=== PATIENT | male | born 1950 | race African-American/Black ===

== ENCOUNTER 2023-04-03 09:24 | Emergency (ER) | payer OTHER ==
--- OUTSIDE RECORDS SUMMARY | 2023-04-03 09:29 | XMS REPORT | Continuity of Care Document ---
:1950 Author Organization [facility] t Address [address] [place] [address] [place] [id number] Care Team Providers Name Role Phone YFN UMANA Primary Care Physician Unavailable Yfn Umana Attending Clinician Unavailable PRISCILA SNYDER Attending Clinician Unavailable JAYLEEN ROCA Attending Clinician Unavailable DR ASMITA CA Attending Clinician Unavailable PRISCILA SNYDER Admitting Clinician Unavailable DR ASMITA CA Admitting Clinician Unavailable Payers Payer Name Policy Type Policy Number Effective Date Expiration Date S wilian [employer] MEDICARE 53 [id number] 2022 Common S pirit PPO 00:00:00 - [facility] MEDICARE A B [id number] 2016 00:00:00 [employer] INDEMNITY [id number] 2021 NON CONTR 00:00:00 Problems Condition Condition Condition Status Onset Resolution Last Treating Co mments Source Name Details Category Date Date Treatment Clinician Date 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) [place] [id number] Mixed Problem Common incontinen Spirit [facility] Urge Urge Problem Common incontinen incontinen Sp najma ce of [facility] urine [facility] [id number] OAB Problem Common (overactiv Spirit e bladder) - [facility] [id number] Detrusor Problem Comm on instabilit Spirit y [facility] [id number] S/P Problem Common prostatect [facility] ricardo [facility] 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 [facility] 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 [facility] Secondary 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 [facility] [id number] Ankle Problem Common arthritis [facility] Allergies, Adverse Reactions, Alerts Allergy Allergy Status Severity Reaction(s) Onset Inactive Treating Comm ents Source Name Type Date Date Clinician No Known DA Active [facility] NO KNOWN Allergy Active [facility] Social History Social Habit Start Date Stop Date Quantity Comments Source History of Tobacco Common Spirit - Use [facility] Sexual orientation [facility] Alcohol intake 2022-03-23 2022-03-23 Current [facility] es 00:00:00 00:00:00 non-drinker of Medical Ce nter alcohol (finding) Tobacco use and 2022-03-11 2022-03-11 Smokeless tobacco [facility] exposure 00:00:00 00:00:00 non-user Medical Center Sex Assigned At [birth year] NIKI Chana king 00:00:00 00:00:00 [facility] Smoking Status Start Date Stop Date Source Never smoked tobacco [facility] Medications Ordered Filled Start Stop Current Ordering Indication Dosage Frequency Signature Comments Components Source Medication Medication Date Date Medication? Clinician (SIG) Name Name Myrbetriq Myrbetriq 2022-0 No 1{table QD Myrbetriq 50 MG 50 MG 3-30 t} 50 MG 00:00: 00 Detrol LA 4 Detrol LA 4 2022-0 No 1{capsu QD Detrol LA MG MG 3-30 le} 4 MG 00:00: 00 Myrbetriq Myrbetriq 2022-0 No 1{table QD Myrbetriq 50 MG 50 MG 3-30 t} 50 MG 00:00: 00 Detrol LA 4 Detrol LA 4 2022-0 No 1{capsu QD Detrol LA MG MG 3-30 le} 4 MG 00:00: 00 Myrbetriq Myrbetriq 2022-0 No 1{table QD Myrbetriq 50 MG 50 MG 3-30 t} 50 MG 00:00: 00 Detrol LA 4 Detrol LA 4 2022-0 No 1{capsu QD Detrol LA MG MG 3-30 le} 4 MG 00:00: 00 Myrbetriq Myrbetriq 2022-0 No 1{table QD Myrbetriq 50 MG 50 MG 3-30 t} 50 MG 00:00: 00 Detrol LA 4 Detrol LA 4 2022-0 No 1{capsu QD Detrol LA MG MG 3-30 le} 4 MG 00:00: 00 Myrbetriq Myrbetriq 3-0 No 1{table QD Myrbetriq 50 MG 50 MG 3-30 t} 50 MG 00:00: 00 Detrol LA 4 Detrol LA 4 2022-0 No 1{capsu QD Detrol LA MG MG 3-30 le} 4 MG 00:00: 00 Myrbetriq Myrbetriq 2022-0 No 1{table QD Myrbetriq 50 MG 50 MG 3-30 t} 50 MG 00:00: 00 Detrol LA 4 Detrol LA 4 2023-0 No 1{capsu QD Detrol LA MG MG 3-30 le} 4 MG 00:00: 00 Myrbetriq Myrbetriq No 1{table QD Myrbetriq 50 MG 50 MG 3-30 t} 50 MG 00:00: 00 Detrol LA 4 Detrol LA 4 No 1{capsu QD Detrol LA MG MG 3-30 le} 4 MG 00:00: 00 Myrbetriq Myrbetriq No 1{table QD Myrbetriq 50 MG 50 MG 3-30 t} 50 MG 00:00: 00 Detrol LA 4 Detrol LA 4 No 1{capsu QD Detrol LA MG MG 3-30 le} 4 MG 00:00: 00 Myrbetriq Myrbetriq No 1{table QD Myrbetriq 50 MG 50 MG 3-30 t} 50 MG 00:00: 00 Detrol LA 4 Detrol LA 4 No 1{capsu QD Detrol LA MG MG 3-30 le} 4 MG 00:00: 00 Myrbetriq Myrbetriq No 1{table QD Myrbetriq 50 MG 50 MG 3-30 t} 50 MG 00:00: 00 Detrol LA 4 Detrol LA 4 No 1{capsu QD Detrol LA MG MG 3-30 le} 4 MG 00:00: 00 tamsulosin 2021-05 Yes .4mg QD Take 0.[address] [facility] (FLOMAX) 1-09 [facility] by [facility] 0.4 mg Cp24 11:20: mouth Medic al 24 hr 35 daily. [place] capsule glimepiride 2021-05 Yes 4mg Q.5D Take [address] (AMARYL) 4 1-09 by mouth 2 [facility] es MG tablet 11:20: (two) Medical 35 times Center daily . sitaGLIPtin 2021-05 Yes 100mg QD Take [address] (JANUVIA) 1-09 [facility] by [facility] 100 MG 11:20: mouth Medical tablet 35 daily. [place] losartan 2021-05 Yes 100mg QD Take [address] (COZAAR) 1-09 mg by [facility] 100 MG 11:20: mouth Medical tablet 35 daily. [place] metFORMIN 2021-05 Yes 1000mg Take 1,[address] [facility] [facility] (GLUCOPHAGE 1-09 mg by [facility] ) 1000 MG 11:20: mouth 2 Medic al tablet 35 (two) Center times daily with breakfast and dinner. metoprolol 2021-05 Yes 50mg QD Take [address] (TOPROL-XL) -09 by mouth Luke s 50 MG 24 hr 11:20: daily. Medi [facility] tablet 35 Center pantoprazol 2021-05 Yes 40mg QD Take [address] e 1-09 by mouth [facility] (PROTONIX) 11:20: daily. Medic al 40 MG 35 Center tablet acetaminoph 2021-05 Yes 500mg Take [address] en 1-09 mg by [facility] (TYLENOL) 11:20: mouth Medical 500 MG 35 every 6 Center tablet (six) hours as needed for Pain. solifenacin 2021-05 Yes 5mg QD Take [address] (VESICARE) - by mouth [facility] 10 MG 11:20: daily. Medical tablet 35 Center tolterodine 2021-05 Yes 4mg QD Take [address] (DETROL LA) -09 by mouth Luke s 4 MG 24 hr 11:20: daily. Medic al capsule 35 Center tadalafiL 2021-05 Yes 5mg QD Take [address] (CIALIS) 5 -09 by mouth [facility] MG tablet 11:20: daily. Medica l 35 [place] predniSONE 2021-05 Yes 5mg QD Take [address] (DELTASONE) -09 by mouth Luke s 5 MG tablet 11:20: daily. [facility] 35 Center cholecalcif 2021-05 Yes 1000U QD Take 1,[address] daisy, 1-09 Units by [facility] vitamin D3, 11:20: mouth Medic al (Vitamin 35 daily. [place] D3) 25 mcg (1,000 unit) capsule abiraterone 2021-05 Yes QD Take by [facility] 500 mg Tab 1-09 mouth [facility] 11:20: daily. Medical 35 Takes 2 Center tabs atorvastati 2021-05 Yes 20mg QD Take [address] n (LIPITOR) -09 by mouth Luke s 20 MG 11:20: daily. Medical tablet 35 Center meloxicam 2021-05 Yes 15mg QD Take [address] (MOBIC) 15 1-09 by mouth [facility] MG tablet 11:20: daily. Medica l 35 Center NIFEdipine 2021-05 Yes 30mg Q.5D Take [address] (PROCARDIA- 05-23 by mouth 2 Chana kes XL) 30 MG 11:20: (two) Medical (OSM) 24 hr 35 times Center tablet daily. dorzolamide 2021-05 Yes 1[drp] Q.5D Place [address] (TRUSOPT) 2 - drop into Daren es % 11:20: both eyes Medical ophthalmic 35 2 (two) Center solution times daily. brimonidine 2021-05 Yes 1[drp] Q.5D [address] [facility] -timoloL 09 (two) [facility] (Combigan) 11:20: times Medica l 0.2-0.5 % 35 daily. Center ophthalmic solution latanoprost 2021-05 Yes 1[drp] QD Place [address] (XALATAN) 05-23 drop into [facility] 0.005 % 11:20: both eyes Medic al ophthalmic 35 nightly. Cente r solution netarsudiL 2021-05 Yes 1[drp] QD Apply [address] (Rhopressa) 05-23 drop to [facility] 0.02 % Drop 11:20: eye(s) Medi [place] 35 nightly. Center Tadalafil 5 Tadalafil 5 No 1{table QD Tadalafil MG MG t_as_ne 5 MG eded} Myrbetriq Myrbetriq No 1{table QD Myrbetriq 50 MG 50 MG t} 50 MG Baby Baby No Baby Aspirin Aspirin Aspirin Glimepiride Glimepiride No 1{table QD Glimepirid 4 MG 4 MG t_with_ e [address]_or_t he_firs t_main_ meal_of _the_da y} Diflupredna Diflupredna No 1{drop_ BID Diflupredn te 0.05 % te 0.05 % into_af ate 0.05 % fected_ eye} Tolterodine Tolterodine No 1{table BID Tolterodin Tartrate 2 Tartrate 2 t} e Tartrate MG MG 2 MG hydrALAZINE hydrALAZINE No 1{table BID hydrALAZIN HCl 10 MG HCl 10 MG t_with_ E HCl 10 food} MG Losartan Losartan No 1{table QD Losartan Potassium Potassium t} Potassium 100 MG 100 MG 100 MG Carvedilol Carvedilol No 1{table BID Carvedilol 12.5 MG 12.5 MG t_with_ 12.5 MG food} metFORMIN metFORMIN No 1{table QD metFORMIN HCl 1000 MG HCl 1000 MG t_with_ HCl 1000 a_meal} MG NIFEdipine NIFEdipine No 1{table QD NIFEdipine ER 30 MG ER 30 MG t_on_an ER 30 MG _empty_ stomach } Atorvastati Atorvastati No 1{table QD Atorvastat n Calcium n Calcium t} in Calcium 20 MG 20 MG 20 MG Abiraterone Abiraterone No Abirateron Acetate Acetate e Acetate Farxiga 5 Farxiga 5 No 1{table QD Farxiga 5 MG MG t} MG Januvia 100 Januvia 100 No 1{table QD Januvia MG MG t} 100 MG Pantoprazol Pantoprazol No 1{table QD Pantoprazo e Sodium 40 e Sodium 40 t} le Sodium MG MG 40 MG Tadalafil 5 Tadalafil 5 No 1{table QD Tadalafil MG MG t_as_ne 5 MG eded} Myrbetriq Myrbetriq No 1{table QD Myrbetriq 50 MG 50 MG t} 50 MG Baby Baby No Baby Aspirin Aspirin Aspirin Glimepiride Glimepiride No 1{table QD Glimepirid 4 MG 4 MG t_with_ e [address]_or_t he_firs t_main_ meal_of _the_da y} Diflupredna Diflupredna No 1{drop_ BID Diflupredn te 0.05 % te 0.05 % into_af ate 0.05 % fected_ eye} Tolterodine Tolterodine No 1{table BID Tolterodin Tartrate 2 Tartrate 2 t} e Tartrate MG MG 2 MG hydrALAZINE hydrALAZINE No 1{table BID hydrALAZIN HCl 10 MG HCl 10 MG t_with_ E HCl 10 food} MG Losartan Losartan No 1{table QD Losartan Potassium Potassium t} Potassium 100 MG 100 MG 100 MG Carvedilol Carvedilol No 1{table BID Carvedilol 12.5 MG 12.5 MG t_with_ 12.5 MG food} metFORMIN metFORMIN No 1{table QD metFORMIN HCl 1000 MG HCl 1000 MG t_with_ HCl 1000 a_meal} MG NIFEdipine NIFEdipine No 1{table QD NIFEdipine ER 30 MG ER 30 MG t_on_an ER 30 MG _empty_ stomach } Tolterodine Tolterodine No Tolterodin Tartrate Tartrate e Tartrate Atorvastati Atorvastati No 1{table QD Atorvastat n Calcium n Calcium t} in Calcium 20 MG 20 MG 20 MG Abiraterone Abiraterone No Abirateron Acetate Acetate e Acetate Farxiga 5 Farxiga 5 No 1{table QD Farxiga 5 MG MG t} MG Januvia 100 Januvia 100 No 1{table QD Januvia MG MG t} 100 MG Pantoprazol Pantoprazol No 1{table QD Pantoprazo e Sodium 40 e Sodium 40 t} le Sodium MG MG 40 MG Baby Baby No Baby Aspirin Aspirin Aspirin Tadalafil 5 Tadalafil 5 No 1{table QD Tadalafil MG MG t_as_ne 5 MG eded} Myrbetriq Myrbetriq No 1{table QD Myrbetriq 50 MG 50 MG t} 50 MG Baby Baby No Baby Aspirin Aspirin Aspirin Glimepiride Glimepiride No 1{table QD Glimepirid 4 MG 4 MG t_with_ e [address]_or_t he_firs t_main_ meal_of _the_da y} Diflupredna Diflupredna No 1{drop_ BID Diflupredn te 0.05 % te 0.05 % into_af ate 0.05 % fected_ eye} Tolterodine Tolterodine No 1{table BID Tolterodin Tartrate 2 Tartrate 2 t} e Tartrate MG MG 2 MG hydrALAZINE hydrALAZINE No 1{table BID hydrALAZIN HCl 10 MG HCl 10 MG t_with_ E HCl 10 food} MG Losartan Losartan No 1{table QD Losartan Potassium Potassium t} Potassium 100 MG 100 MG 100 MG Carvedilol Carvedilol No 1{table BID Carvedilol 12.5 MG 12.5 MG t_with_ 12.5 MG food} metFORMIN metFORMIN No 1{table QD metFORMIN HCl 1000 MG HCl 1000 MG t_with_ HCl 1000 a_meal} MG Abiraterone Abiraterone No Abirateron Acetate Acetate e Acetate NIFEdipine NIFEdipine No 1{table QD NIFEdipine ER 30 MG ER 30 MG t_on_an ER 30 MG _empty_ stomach } Atorvastati Atorvastati No 1{table QD Atorvastat n Calcium n Calcium t} in Calcium 20 MG 20 MG 20 MG Abiraterone Abiraterone No Abirateron Acetate Acetate e Acetate Farxiga 5 Farxiga 5 No 1{table QD Farxiga 5 MG MG t} MG Januvia 100 Januvia 100 No 1{table QD Januvia MG MG t} 100 MG Pantoprazol Pantoprazol No 1{table QD Pantoprazo e Sodium 40 e Sodium 40 t} le Sodium MG MG 40 MG Atorvastati Atorvastati No Atorvastat n Calcium n Calcium in Calcium Tadalafil 5 Tadalafil 5 No 1{table QD Tadalafil MG MG t_as_ne 5 MG eded} Myrbetriq Myrbetriq No 1{table QD Myrbetriq 50 MG 50 MG t} 50 MG Baby Baby No Baby Aspirin Aspirin Aspirin Glimepiride Glimepiride No 1{table QD Glimepirid 4 MG 4 MG t_with_ e [address]_or_t he_firs t_main_ meal_of _the_da y} Diflupredna Diflupredna No 1{drop_ BID Diflupredn te 0.05 % te 0.05 % into_af ate 0.05 % fected_ eye} Tolterodine Tolterodine No 1{table BID Tolterodin Tartrate 2 Tartrate 2 t} e Tartrate MG MG 2 MG hydrALAZINE hydrALAZINE No 1{table BID hydrALAZIN HCl 10 MG HCl 10 MG t_with_ E HCl 10 food} MG Losartan Losartan No 1{table QD Losartan Potassium Potassium t} Potassium 100 MG 100 MG 100 MG Carvedilol Carvedilol No 1{table BID Carvedilol 12.5 MG 12.5 MG t_with_ 12.5 MG food} Carvedilol Carvedilol No Carvedilol metFORMIN metFORMIN No 1{table QD metFORMIN HCl 1000 MG HCl 1000 MG t_with_ HCl 1000 a_meal} MG NIFEdipine NIFEdipine No 1{table QD NIFEdipine ER 30 MG ER 30 MG t_on_an ER 30 MG _empty_ stomach } Atorvastati Atorvastati No 1{table QD Atorvastat n Calcium n Calcium t} in Calcium 20 MG 20 MG 20 MG Abiraterone Abiraterone No Abirateron Acetate Acetate e Acetate Farxiga 5 Farxiga 5 No 1{table QD Farxiga 5 MG MG t} MG Januvia 100 Januvia 100 No 1{table QD Januvia MG MG t} 100 MG Pantoprazol Pantoprazol No 1{table QD Pantoprazo e Sodium 40 e Sodium 40 t} le Sodium MG MG 40 MG Losartan Losartan No Losartan Potassium Potassium Potassium Tadalafil 5 Tadalafil 5 No 1{table QD Tadalafil MG MG t_as_ne 5 MG eded} Myrbetriq Myrbetriq No 1{table QD Myrbetriq 50 MG 50 MG t} 50 MG Baby Baby No Baby Aspirin Aspirin Aspirin Glimepiride Glimepiride No 1{table QD Glimepirid 4 MG 4 MG t_with_ e [address]_or_t he_firs t_main_ meal_of _the_da y} Diflupredna Diflupredna No 1{drop_ BID Diflupredn te 0.05 % te 0.05 % into_af ate 0.05 % fected_ eye} Tolterodine Tolterodine No 1{table BID Tolterodin Tartrate 2 Tartrate 2 t} e Tartrate MG MG 2 MG hydrALAZINE hydrALAZINE No 1{table BID hydrALAZIN HCl 10 MG HCl 10 MG t_with_ E HCl 10 food} MG Glimepiride Glimepiride No Glimepirid e Losartan Losartan No 1{table QD Losartan Potassium Potassium t} Potassium 100 MG 100 MG 100 MG Carvedilol Carvedilol No 1{table BID Carvedilol 12.5 MG 12.5 MG t_with_ 12.5 MG food} metFORMIN metFORMIN No 1{table QD metFORMIN HCl 1000 MG HCl 1000 MG t_with_ HCl 1000 a_meal} MG NIFEdipine NIFEdipine No 1{table QD NIFEdipine ER 30 MG ER 30 MG t_on_an ER 30 MG _empty_ stomach } Atorvastati Atorvastati No 1{table QD Atorvastat n Calcium n Calcium t} in Calcium 20 MG 20 MG 20 MG Abiraterone Abiraterone No Abirateron Acetate Acetate e Acetate Farxiga 5 Farxiga 5 No 1{table QD Farxiga 5 MG MG t} MG Januvia 100 Januvia 100 No 1{table QD Januvia MG MG t} 100 MG Pantoprazol Pantoprazol No Pantoprazo e Sodium e Sodium le Sodium Pantoprazol Pantoprazol No 1{table QD Pantoprazo e Sodium 40 e Sodium 40 t} le Sodium MG MG 40 MG Tadalafil 5 Tadalafil 5 No 1{table QD Tadalafil MG MG t_as_ne 5 MG eded} Myrbetriq Myrbetriq No 1{table QD Myrbetriq 50 MG 50 MG t} 50 MG Baby Baby No Baby Aspirin Aspirin Aspirin Glimepiride Glimepiride No 1{table QD Glimepirid 4 MG 4 MG t_with_ e [address]_or_t he_firs t_main_ meal_of _the_da y} predniSONE predniSONE No predniSONE Diflupredna Diflupredna No 1{drop_ BID Diflupredn te 0.05 % te 0.05 % into_af ate 0.05 % fected_ eye} Tolterodine Tolterodine No 1{table BID Tolterodin Tartrate 2 Tartrate 2 t} e Tartrate MG MG 2 MG hydrALAZINE hydrALAZINE No 1{table BID hydrALAZIN HCl 10 MG HCl 10 MG t_with_ E HCl 10 food} MG Losartan Losartan No 1{table QD Losartan Potassium Potassium t} Potassium 100 MG 100 MG 100 MG Carvedilol Carvedilol No 1{table BID Carvedilol 12.5 MG 12.5 MG t_with_ 12.5 MG food} metFORMIN metFORMIN No 1{table QD metFORMIN HCl 1000 MG HCl 1000 MG t_with_ HCl 1000 a_meal} MG NIFEdipine NIFEdipine No 1{table QD NIFEdipine ER 30 MG ER 30 MG t_on_an ER 30 MG _empty_ stomach } Atorvastati Atorvastati No 1{table QD Atorvastat n Calcium n Calcium t} in Calcium 20 MG 20 MG 20 MG Abiraterone Abiraterone No Abirateron Acetate Acetate e Acetate Tadalafil Tadalafil No Tadalafil Farxiga 5 Farxiga 5 No 1{table QD Farxiga 5 MG MG t} MG Januvia 100 Januvia 100 No 1{table QD Januvia MG MG t} 100 MG Pantoprazol Pantoprazol No 1{table QD Pantoprazo e Sodium 40 e Sodium 40 t} le Sodium MG MG 40 MG Tadalafil 5 Tadalafil 5 No 1{table QD Tadalafil MG MG t_as_ne 5 MG eded} NIFEdipine NIFEdipine No NIFEdipine ER ER ER Myrbetriq Myrbetriq No 1{table QD Myrbetriq 50 MG 50 MG t} 50 MG Baby Baby No Baby Aspirin Aspirin Aspirin Glimepiride Glimepiride No 1{table QD Glimepirid 4 MG 4 MG t_with_ e [address]_or_t he_firs t_main_ meal_of _the_da y} Diflupredna Diflupredna No 1{drop_ BID Diflupredn te 0.05 % te 0.05 % into_af ate 0.05 % fected_ eye} Tolterodine Tolterodine No 1{table BID Tolterodin Tartrate 2 Tartrate 2 t} e Tartrate MG MG 2 MG hydrALAZINE hydrALAZINE No 1{table BID hydrALAZIN HCl 10 MG HCl 10 MG t_with_ E HCl 10 food} MG Losartan Losartan No 1{table QD Losartan Potassium Potassium t} Potassium 100 MG 100 MG 100 MG Carvedilol Carvedilol No 1{table BID Carvedilol 12.5 MG 12.5 MG t_with_ 12.5 MG food} metFORMIN metFORMIN No 1{table QD metFORMIN HCl 1000 MG HCl 1000 MG t_with_ HCl 1000 a_meal} MG metFORMIN metFORMIN No metFORMIN HCl HCl HCl NIFEdipine NIFEdipine No 1{table QD NIFEdipine ER 30 MG ER 30 MG t_on_an ER 30 MG _empty_ stomach } Atorvastati Atorvastati No 1{table QD Atorvastat n Calcium n Calcium t} in Calcium 20 MG 20 MG 20 MG Abiraterone Abiraterone No Abirateron Acetate Acetate e Acetate Farxiga 5 Farxiga 5 No 1{table QD Farxiga 5 MG MG t} MG Januvia 100 Januvia 100 No 1{table QD Januvia MG MG t} 100 MG Pantoprazol Pantoprazol No 1{table QD Pantoprazo e Sodium 40 e Sodium 40 t} le Sodium MG MG 40 MG hydrALAZINE hydrALAZINE No hydrALAZIN HCl HCl E HCl Tadalafil 5 Tadalafil 5 No 1{table QD Tadalafil MG MG t_as_ne 5 MG eded} Myrbetriq Myrbetriq No 1{table QD Myrbetriq 50 MG 50 MG t} 50 MG Baby Baby No Baby Aspirin Aspirin Aspirin Glimepiride Glimepiride No 1{table QD Glimepirid 4 MG 4 MG t_with_ e [address]_or_t he_firs t_main_ meal_of _the_da y} Diflupredna Diflupredna No 1{drop_ BID Diflupredn te 0.05 % te 0.05 % into_af ate 0.05 % fected_ eye} Tolterodine Tolterodine No 1{table BID Tolterodin Tartrate 2 Tartrate 2 t} e Tartrate MG MG 2 MG hydrALAZINE hydrALAZINE No 1{table BID hydrALAZIN HCl 10 MG HCl 10 MG t_with_ E HCl 10 food} MG Losartan Losartan No 1{table QD Losartan Potassium Potassium t} Potassium 100 MG 100 MG 100 MG Carvedilol Carvedilol No 1{table BID Carvedilol 12.5 MG 12.5 MG t_with_ 12.5 MG food} Meloxicam Meloxicam No Meloxicam metFORMIN metFORMIN No 1{table QD metFORMIN HCl 1000 MG HCl 1000 MG t_with_ HCl 1000 a_meal} MG NIFEdipine NIFEdipine No 1{table QD NIFEdipine ER 30 MG ER 30 MG t_on_an ER 30 MG _empty_ stomach } Atorvastati Atorvastati No 1{table QD Atorvastat n Calcium n Calcium t} in Calcium 20 MG 20 MG 20 MG Abiraterone Abiraterone No Abirateron Acetate Acetate e Acetate Farxiga 5 Farxiga 5 No 1{table QD Farxiga 5 MG MG t} MG Januvia 100 Januvia 100 No 1{table QD Januvia MG MG t} 100 MG Pantoprazol Pantoprazol No 1{table QD Pantoprazo e Sodium 40 e Sodium 40 t} le Sodium MG MG 40 MG Januvia Januvia No Januvia Tadalafil 5 Tadalafil 5 No 1{table QD Tadalafil MG MG t_as_ne 5 MG eded} Myrbetriq Myrbetriq No 1{table QD Myrbetriq 50 MG 50 MG t} 50 MG Baby Baby No Baby Aspirin Aspirin Aspirin Glimepiride Glimepiride No 1{table QD Glimepirid 4 MG 4 MG t_with_ e [address]_or_t he_firs t_main_ meal_of _the_da y} Diflupredna Diflupredna No 1{drop_ BID Diflupredn te 0.05 % te 0.05 % into_af ate 0.05 % fected_ eye} Tolterodine Tolterodine No 1{table BID Tolterodin Tartrate 2 Tartrate 2 t} e Tartrate MG MG 2 MG hydrALAZINE hydrALAZINE No 1{table BID hydrALAZIN HCl 10 MG HCl 10 MG t_with_ E HCl 10 food} MG Losartan Losartan No 1{table QD Losartan Potassium Potassium t} Potassium 100 MG 100 MG 100 MG Carvedilol Carvedilol No 1{table BID Carvedilol 12.5 MG 12.5 MG t_with_ 12.5 MG food} metFORMIN metFORMIN No 1{table QD metFORMIN HCl 1000 MG HCl 1000 MG t_with_ HCl 1000 a_meal} MG NIFEdipine NIFEdipine No 1{table QD NIFEdipine ER 30 MG ER 30 MG t_on_an ER 30 MG _empty_ stomach } Atorvastati Atorvastati No 1{table QD Atorvastat n Calcium n Calcium t} in Calcium 20 MG 20 MG 20 MG Abiraterone Abiraterone No Abirateron Acetate Acetate e Acetate Farxiga 5 Farxiga 5 No 1{table QD Farxiga 5 MG MG t} MG Januvia 100 Januvia 100 No 1{table QD Januvia MG MG t} 100 MG Pantoprazol Pantoprazol No 1{table QD Pantoprazo e Sodium 40 e Sodium 40 t} le Sodium MG MG 40 MG Tadalafil 5 Tadalafil 5 No 1{table QD Tadalafil MG MG t_as_ne 5 MG eded} Myrbetriq Myrbetriq No 1{table QD Myrbetriq 50 MG 50 MG t} 50 MG Baby Baby No Baby Aspirin Aspirin Aspirin Glimepiride Glimepiride No 1{table QD Glimepirid 4 MG 4 MG t_with_ e [address]_or_t he_firs t_main_ meal_of _the_da y} Diflupredna Diflupredna No 1{drop_ BID Diflupredn te 0.05 % te 0.05 % into_af ate 0.05 % fected_ eye} Tolterodine Tolterodine No 1{table BID Tolterodin Tartrate 2 Tartrate 2 t} e Tartrate MG MG 2 MG hydrALAZINE hydrALAZINE No 1{table BID hydrALAZIN HCl 10 MG HCl 10 MG t_with_ E HCl 10 food} MG Losartan Losartan No 1{table QD Losartan Potassium Potassium t} Potassium 100 MG 100 MG 100 MG Carvedilol Carvedilol No 1{table BID Carvedilol 12.5 MG 12.5 MG t_with_ 12.5 MG food} metFORMIN metFORMIN No 1{table QD metFORMIN HCl 1000 MG HCl 1000 MG t_with_ HCl 1000 a_meal} MG NIFEdipine NIFEdipine No 1{table QD NIFEdipine ER 30 MG ER 30 MG t_on_an ER 30 MG _empty_ stomach } Atorvastati Atorvastati No 1{table QD Atorvastat n Calcium n Calcium t} in Calcium 20 MG 20 MG 20 MG Abiraterone Abiraterone No Abirateron Acetate Acetate e Acetate Farxiga 5 Farxiga 5 No 1{table QD Farxiga 5 MG MG t} MG Januvia 100 Januvia 100 No 1{table QD Januvia MG MG t} 100 MG Pantoprazol Pantoprazol No 1{table QD Pantoprazo e Sodium 40 e Sodium 40 t} le Sodium MG MG 40 MG Vital Signs Vital Name Observation Time Observation Value Comments Source height 2022-06-27 15:15:00 71 [in_i] [facility] weight 2022-06-27 15:15:00 212 [lb_av] [facility] temperature 2022-06-27 15:15:00 97.4 [degF] [facility] bmi 2022-06-27 15:15:00 29.56 kg/m2 [facility] respiratory rate 2022-06-27 15:15:00 18 /min [facility] blood pressure 2022-06-27 15:15:00 152 mm[Hg] [facility] blood pressure 2022-06-27 15:15:00 69 mm[Hg] [facility] diastolic [facility] HEIGHT 2022-03-11 12:00:00 180.3 cm WEIGHT 2022-03-11 12:00:00 92.987 kg HEIGHT 2022-03-11 12:00:00 180.3 cm WEIGHT 2022-03-11 12:00:00 92.987 kg height 2022-03-03 09:00:00 71 [in_i] [facility] weight 2022-03-03 09:00:00 216 [lb_av] [facility] temperature 2022-03-03 09:00:00 97.2 [degF] [facility] bmi 2022-03-03 09:00:00 30.12 kg/m2 [facility] blood pressure 2022-03-03 09:00:00 132 mm[Hg] [facility] blood pressure 2022-03-03 09:00:00 84 mm[Hg] [facility] - diastolic [facility] Procedures Procedure Date / Time Performed Performing Clinician Sourc e PVR 2022-06-27 00:00:00 [facility] Plan of Care Planned Activity Planned Date Details Comments Source Future Scheduled 2023-03-[address] [facility] 00:00:00 Counseling and Medical Cente r Screening (12+) [code = Tobacco Cessation Counseling and Screening (12+)] Future Scheduled 2023-01-13 Influenza Vaccine (#1) [facility] 00:00:00 [code = Influenza Medical Ce nter Vaccine (#1)] Future Scheduled 2022-05-[address] [facility] 00:00:00 (12+) [code = Medical Center DEPRESSION SCREENING (12+)] Future Scheduled 2022-05-15 FALLS RISK SCREENING [facility] 00:00:00 [code = FALLS RISK Medical C enter SCREENING] Future Scheduled 2020-10-04 COVID-19 VACCINE (3 - [facility] 00:[facility]00 Moderna series) [code = [facility] COVID-19 VACCINE (3 - Moderna series)] Future Scheduled 2017-01-[address] [facility] 00:00:00 WELLNESS (YEAR 2 or Medical Center FIRST YEAR if no IPPE) [code = MEDICARE ANNUAL WELLNESS (YEAR 2 or FIRST YEAR if no IPPE)] Future Scheduled 2016-01-26 PNEUMOCOCCAL 65+ YRS ([address] [facility] 00:00:00 - PCV) [code = Medical Cente r PNEUMOCOCCAL 65+ YRS (1 - PCV)] Future Scheduled 2001 SHINGLES VACCINES ([address] [facility] 00:00:00 2) [code = SHINGLES Medical Center VACCINES (1 of 2)] Future Scheduled 1970 DTAP/TDAP/TD VACCINES [facility] 00:00:00 (1 - Tdap) [code = Medical C enter DTAP/TDAP/TD VACCINES (1 - Tdap)] Future Scheduled 1969 HEPATITIS C SCREENING [facility] 00:00:00 [code = HEPATITIS C Medical Center SCREENING] Future Scheduled 1951 CT Colonography (combo) [facility] 00:00:00 [code = CT Colonography [facility] (combo)] Future Scheduled 1950 Screening for malignant [facility] Test 00:00:00 neoplasm of colon Medical Ce nter (procedure) [code = 562811151] Future Scheduled 1950 Screening for malignant [facility] Test 00:00:00 neoplasm of colon Medical Ce nter (procedure) [code = 574733401] Future Scheduled 1950 Screening for malignant [facility] Test 00:00:00 neoplasm of colon Medical Ce nter (procedure) [code = 646391853] Future Scheduled 1950 Screening for malignant [facility] Test 00:00:00 neoplasm of colon Medical Ce nter (procedure) [code = 788434428] Future Scheduled 1950 Sigmoidoscopy [code = [facility] 00:[facility]:00 Sigmoidoscopy] Medical Cente r Encounters Start End Encounter Admission Attending Care Care Encounter Source Date/Time Date/Time Type Type Clinicians Facility Department ID 2022-06-27 Outpatient Umana, STLMLC STLMLC [id number] Common 13:40:02 Yfn [id number] [facility] 2022-06-23 Outpatient Umana, STLMLC STLMLC [id number] Common 15:23:01 Yfn [id number] [facility] 2022-06-13 Outpatient Umana, STLMLC STLMLC [id number] Common 09:15:03 Yfn [id number] [facility] 2022-03-03 Outpatient Umana, STLMLC STLMLC [id number] Common 09:04:02 Yfn [id number] [facility] 2022-09-27 2022-09-27 ([place]) Nurse STLC STLC [id number] Common 00:00:00 00:00:00 Visit [facility] 2022-09-20 2022-09-20 ([place]) Nurse STLC STLC [id number] Common 00:00:00 00:00:00 Visit [facility] 2022-09-13 2022-09-13 ([place]) Nurse STLC STLC [id number] Common 00:00:00 00:00:00 Visit [facility] 2022-09-06 2022-09-06 ([place]) Nurse STLMLC STLMLC [id number] Common 00:00:00 00:00:00 Visit [facility] 2022-08-30 2022-08-30 OFFICE STLMLC STLC [id number] Co mmon 00:00:00 00:00:00 VISIT [facility] LEVEL 1 [facility] 2022-08-23 2022-08-23 ([place]) Nurse STLC STLC [id number] Common 00:00:00 00:00:00 Visit [facility] 2022-08-16 2022-08-16 ([place]) Nurse STLC STLC [id number] Common 00:00:00 00:00:00 Visit [facility] 2022-08-11 2022-08-11 OFFICE STLMLC STLMLC [id number] Co mmon 00:00:00 00:00:00 [facility]ISIT [facility] EST[facility] PT - [facility] LEVEL 4 [facility] 2022-07-28 2022-07-28 (PROC) STLMLC STLMLC [id number] Co mmon 00:00:00 00:00:00 Procedure Spir it - [facility] 2022-06-27 2022-06-27 OFFICE STLMLC STLMLC [id number] Co mmon 00:00:00 00:00:00 VISIT NEW Spir it PT LEVEL 3 - [facility] 2022-03-23 2022-03-23 Outpatient GEOFFREY SNYDER [facility] Surgery [id number] SLE 08:06:00 11:15:00 PRISCILA 2022-03-11 2022-03-11 Outpatient [facility] [id number] SLE 12:22:19 23:59:00 2022-03-03 2022-03-03 OFFICE STLMLC STLMLC [id number] Co mmon 00:00:00 00:00:00 VISIT NEW Spir it PT LEVEL 3 - [facility] 2019-07-16 2019-07-16 Outpatient [facility] [id number] 09:30:00 09:30:00 -[id number] [facility] 2016-10-14 2016-10-14 Outpatient Marcelo [facility] [id number] [address] 05:00:00 05:00:00 [facility] Results Test Description Test Time Test Comments Results Result Comments Source POCT-GLUCOSE METER 2022-03-23 09:09:52 Test Item Value Reference Range Interpretation Comme nts POC-GLUCOSE METER (BEAKER) 123 mg/dL 70-110 H : TESTED AT [address], (test code = 1538) [facility] [id number]: C[employer]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 No focal consolidation or pulmonary edema. PLEURA:No pleural effusion or pneumothorax. MEDIASTINUM:The cardiomediastinal silhouette appears normal in size and shape. BONES/SOFT TISSUES:No acute osseous injury. Partially visualized cervical spine fusion hardware. ABDOMEN:No free air under the diaphragm. IMPRESSION: No focal pneumonia or pulmonary edema. Signed by: Norma Martinez MD on 07/16/2019 9:04 AM Dictated By: NORMA MARTINEZ MD 3 Transcribed By: PETER on 07/16/19903 COPY TO: JAYLEEN ROCA MD
[2023-04-03] MEDS ORDERED: MORPHINE 4 MG/ML SYR ONE (10:06)
[2023-04-03] MEDS ORDERED: NA CHLORIDE 0.9% 1,000 ML ONE (10:06)
[2023-04-03] MEDS ORDERED: ONDANSETRON 4 MG/2 ML VIAL ONE (10:06)
[2023-04-03] MEDS ORDERED: KETOROLAC 30 MG/ML INJ ONE (10:06)
[2023-04-03] MEDS ORDERED: DIAZEPAM 5 MG TABLET ONE (10:06)
[2023-04-03] MEDS ORDERED: NA CHLORIDE 0.9% 500 ML ONE (10:07)
[2023-04-03 10:24] LABS: Absolute Lymphocytes (CBC) 0.8 K/uL (0.7-4.9); Hematocrit 33.6 % (39.6-49.0); Lymphocytes % 7.7 % (15.3-44.8); MCV 89.1 fL (80-100); Platelets 299 thou/uL (152-406); RBC Red Blood Cell Count 3.77 M/uL (4.33-5.43)
[2023-04-03 10:45] LABS: Albumin 3.9 g/dL (3.4-5.0); Bilirubin Total 0.4 mg/dL (0.2-1.0); Potassium 3.4 mEq/L (3.5-5.1); Protein, Total 8.1 g/dL (6.4-8.2); Uric Acid 2.9 mg/dL (3.5-7.2)
--- NOTE | 2023-04-03 10:50 | RAD REPORT ---
EXAM DESCRIPTION: USExtremity Venous Uni Ltd04/03/2023 10:33 am CLINICAL HISTORY: left leg swelling and pain COMPARISON: None FINDINGS: Left common femoral, superficial femoral, greater saphenous, popliteal and posterior tibi al veins are compressible and demonstrate augmentation. Doppler demonstrates good flow. Grayscale, color and spectral analysis performed on all vessels IMPRESSION: No evidence of deep venous thrombosis involving the left lower extremity.
--- NOTE | 2023-04-03 11:47 | RAD REPORT ---
EXAM DESCRIPTION: RAD - Ankle Left 3 View -04/03/2023 11:34 am CLINICAL HISTORY: Left ankle pain FINDINGS: No fracture or dislocation is seen. Mild to moderate osteoarthritis involves the ankle mainly consisting of joint space narrowing and ost eophytes
[2023-04-03] MEDS ORDERED: POTASSIUM 25 MEQ EFFERV TAB ONE (11:57)
--- NOTE | 2023-04-03 12:12 | EDPHYS ---
Physician Documentation [facility] Name: Tim Easton Age: 73 yrs Sex: Male : 1950 Arrival Date: 04/03/2023 Time: 09:24 Bed 13 Private MD: SHAMIR Physician Jamshid Bowen HPI: 04/03 10:24 This 73 yrs old Black Male presents to ER via Wheelchair with complaints of Feet elizabeth Swelling - left foot. 10:24 The patient presents with decreased range of motion, pain. elizabeth 10:25 The complaints affect the left ankle. Onset: The symptoms/episode began/occurred 3 elizabeth day(s) ago. Context: resulted from an unknown cause, The mechanism of injury is unknown. The patient can partially bear weight on the affected extremity. Associated signs and symptoms: The patient has no apparent associated signs or symptoms. The patient presents with decreased range of motion, a deformity, pain. The complaints affect the left foot, lateral side of left foot, left lateral malleolus, left medial malleolus, instep of left foot and arch of left foot. Historical: - Allergies: 09:46 No Known Allergies; iw - PMHx: 09:46 Diabetes mellitus; Hypertensive disorder; prostate cancer-bone cancer; iw - Immunization history:: Adult Immunizations up to date. - Family history:: not pertinent. - Social history:: Smoking status: Patient denies any tobacco usage or history of. ROS: 10:25 Constitutional: Negative for fever, chills, and weight loss, Eyes: Negative for injury, elizabeth pain, redness, and discharge, ENT: Negative for injury, pain, and discharge, Neck: Negative for injury, pain, and swelling, Cardiovascular: Negative for chest pain, palpitations, and edema, Respiratory: Negative for shortness of breath, cough, wheezing, and pleuritic chest pain, Abdomen/GI: Negative for abdominal pain, nausea, vomiting, diarrhea, and constipation, Back: Negative for injury and pain, : Negative for injury, bleeding, discharge, and swelling, Skin: Negative for injury, rash, and discoloration, Neuro: Negative for headache, weakness, numbness, tingling, and seizure, Psych: Negative for depression, anxiety, suicide ideation, homicidal ideation, and hallucinations, Allergy/Immunology: Negative for hives, rash, and allergies, Endocrine: Negative for neck swelling, polydipsia, polyuria, polyphagia, and marked weight changes, Hematologic/Lymphatic: Negative for swollen nodes, abnormal bleeding, and unusual bruising, 10:25 MS/extremity: Positive for decreased range of motion, pain, swelling, tenderness, of the arch of left foot and dorsum of left foot, Exam: 10:25 Constitutional: This is a well developed, well nourished patient who is awake, alert, elizabeth and in no acute distress. Head/Face: Normocephalic, atraumatic. Eyes: Pupils equal round and reactive to light, extra-ocular motions intact. Lids and lashes normal. Conjunctiva and sclera are non-icteric and not injected. Cornea within normal limits. Periorbital areas with no swelling, redness, or edema. ENT: Nares patent. No nasal discharge, no septal abnormalities noted. Tympanic membranes are normal and external auditory canals are clear. Oropharynx with no redness, swelling, or masses, exudates, or evidence of obstruction, uvula midline. Mucous membranes moist. Neck: Trachea midline, no thyromegaly or masses palpated, and no cervical lymphadenopathy. Supple, full range of motion without nuchal rigidity, or vertebral point tenderness. No Meningismus. Chest/axilla: Normal chest wall appearance and motion. Nontender with no deformity. No lesions are appreciated. Cardiovascular: Regular rate and rhythm with a normal S1 and S2. No gallops, murmurs, or rubs. Normal PMI, no JVD. No pulse deficits. Respiratory: Lungs have equal breath sounds bilaterally, clear to auscultation and percussion. No rales, rhonchi or wheezes noted. No increased work of breathing, no retractions or nasal flaring. Abdomen/GI: Soft, non-tender, with normal bowel sounds. No distension or tympany. No guarding or rebound. No evidence of tenderness throughout. Back: No spinal tenderness. No costovertebral tenderness. Full range of motion. Male : Normal genitalia with no discharge or lesions. Skin: Warm, dry with normal turgor. Normal color with no rashes, no lesions, and no evidence of cellulitis. Neuro: Awake and alert, GCS 15, oriented to person, place, time, and situation. Cranial nerves II-XII grossly intact. Motor strength 5/5 in all extremities. Sensory grossly intact. Cerebellar exam normal. Normal gait. Psych: Awake, alert, with orientation to person, place and time. Behavior, mood, and affect are within normal limits. 10:25 Musculoskeletal/extremity: ROM: full active range of motion, full passive range of motion, Circulation is intact in all extremities. Sensation intact. Compartment Syndrome exam of affected extremity: is normal. Weight bearing: is unable to bear weight, DVT Exam: negative Homans' sign noted on exam, no appreciated bluish discoloration, no erythema, no increased warmth, pain, swelling, tenderness, Vital Signs: 09:43 BP 160 / 82 LA Sitting (auto/reg); Pulse 66 MON; Resp 16 S; Temp 98.3; Pulse Ox 99% on ds4 R/A; 10:37 BP 154 / 83; Pulse 65; Resp 18; Pulse Ox 100% on R/A; db 11:00 BP 164 / 79; Pulse 65; Resp 18; Pulse Ox 100% on R/A; db 12:00 BP 158 / 78; Pulse 65; Resp 18; Pulse Ox 100% ; db MDM: 09:28 Patient medically screened. [facility] 10:27 Differential diagnosis: fracture, sprain, arthritis, gout, cellulitis. Data reviewed: [facility] vital signs, nurses notes, lab test result(s), radiologic studies, doppler, plain films. Consideration of Admission/Observation Escalation of care including admission/observation considered. I considered the following discharge prescriptions or medication management in the emergency department Medications were administered in the Emergency Department. See MAR. Independent interpretation of the following test(s) in the Emergency Department X-Ray: My interpretation is no gas, no fx. Test considered but Not performed: MRI: no mri foot. Historians other than the Patient: Family Member: , son. Care significantly affected by the following chronic conditions: Diabetes, Hypertension, Cancer. 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 04/03 09:48 Order name: CBC with Diff; Complete Time: 10:44 [facility] 04/03 09:48 Order name: Comprehensive Metabolic Panel; Complete Time: 11:27 [facility] 04/03 09:48 Order name: Uric Acid; Complete Time: 11:27 [facility] 04/03 09:48 Order name: Blood Culture Adult (2) [facility] 04/03 09:48 Order name: Lactate w/ 2H reflex if indic.; Complete Time: 10:44 [facility] 04/03 09:48 Order name: Foot Left 3 View XRAY; Complete Time: 12:20 [facility] 04/03 09:48 Order name: Ankle Left 3 View XRAY; Complete Time: 11:59 [facility] 04/03 09:50 Order name: US Extremity Venous Unilateral Ltd; Complete Time: 11:27 [facility] 04/03 10:43 Order name: Walking boot; Complete Time: 12:29 [facility] 04/03 12:43 Order name: Crutch Training; Complete Time: 13:02 [facility] Administered Medications: 10:08 Drug: NS 0.9% IV 500 ml IV at bolus once Route: IV; Rate: bolus; Site: right db antecubital; 12:45 Follow up: Response: No adverse reaction; IV Status: Completed infusion; IV Intake: db 500ml 10:08 Drug: Ketorolac IVP 15 mg IVP once Route: IVP; Site: right antecubital; db 11:49 Follow up: Response: No adverse reaction db 10:08 Drug: Ondansetron IVP 4 mg IVP once; over 2 minutes Route: IVP; Site: right antecubital;db 11:49 Follow up: Response: No adverse reaction db 10:08 Drug: Diazepam PO 5 mg PO once Route: PO; db 11:49 Follow up: Response: No adverse reaction db 10:44 Drug: morphine IVP or IV 4 mg IVP once over 4 mins Route: IVP; Infused Over: 4 mins; db Site: right antecubital; 11:49 Follow up: Response: No adverse reaction db 10:44 Drug: NS 0.9% IV 1000 ml IV at 125 ml/hr continuous Route: IV; Rate: 125 ml/hr; Site: db right antecubital; 13:03 Follow up: Response: No adverse reaction; IV Status: Completed infusion db 11:49 Drug: Potassium PO Effervescent Tablet 25 mEq PO once; dissolve in 4 ounces of water or db juice Route: PO; 12:45 Follow up: Response: No adverse reaction db Disposition Summary: 04/03/23 12:11 Discharge Ordered Notes: Location: Home [facility] Problem: new elizabeth Symptoms: have improved elizabeth Condition: Stable elizabeth Diagnosis - Pain in left foot elizabeth - Pain in left ankle and joints of left foot elizabeth - Type 2 diabetes mellitus with hyperglycemia elizabeth - Hypokalemia elizabeth - Osteoarthritis, unspecified site - left foot, ankle elizabeth Followup: elizabeth - With: Private Physician - When: 2 - 3 days - Reason: Recheck today's complaints, Continuance of care, Re-evaluation by your physician Followup: elizabeth - With: Héctor Burger MD - When: 2 - 3 days - Reason: Recheck today's complaints, Re-evaluation by your physician Followup: elizabeth - With: Manny Loya DPM - When: 2 - 3 days - Reason: Recheck today's complaints, Re-evaluation by your physician Discharge Instructions: - Discharge Summary Sheet elizabeth - Joint Pain elizabeth - Arthritis elizabeth - Type 2 Diabetes Mellitus, Diagnosis, Adult elizabeth - Hyperglycemia elizabeth - Musculoskeletal Pain elizabeth - Diabetes Mellitus and Nutrition, Adult elizabeth - Joint Pain, [id number] elizabeth - Hypokalemia [facility] Forms: - Medication Reconciliation Form [facility] - Thank You Letter [facility] - Antibiotic Education elizabeth - Prescription Opioid Use elizabeth - Patient Portal Instructions [facility] - Leadership Thank You Letter [facility] Prescriptions: - acetaminophen-codeine 300-30 mg Oral tablet - take 2 tablet ORAL route 4 times per day; 20 tablet; Refills: 0, Product [facility] Selection Permitted - diclofenac sodium 25 mg Oral tablet, delayed release (enteric coated) - take 1 tablet ORAL route 3 times per day; 30 tablet; Refills: 0, Product [facility] Selection Permitted Signatures: Dispatcher [employer] Jamshid Saleh MD MD cha Williams, Irene, RN RN iw Benton, Danielle, RN RN db
--- NOTE | 2023-04-03 12:12 | ER ---
Nurse's Notes [facility] Name: Tim Easton Age: 73 yrs Sex: Male : 1950 Arrival Date: 04/03/2023 Time: 09:24 Bed 13 Private MD: Diagnosis: Pain in left foot;Pain in left ankle and joints of left foot;Type 2 diabetes mellitus with hyperglycemia;Hypokalemia;Osteoarthritis, unspecified site-left foot, ankle Presentation: 04/03 09:45 Chief complaint: Patient states: left foot/ankle swelling, tenderness, pain to touch, iw can't bear weight , got bad last night. Coronavirus screen: At this time, the client does not indicate any symptoms associated with coronavirus-19. Ebola Screen: Patient negative for fever greater than or equal to 101.5 degrees Fahrenheit, and additional compatible Ebola Virus Disease symptoms Patient denies exposure to infectious person. Patient denies travel to an Ebola-affected area in the 21 days before illness onset. No symptoms or risks identified at this time. Initial Sepsis Screen: Does the patient meet any 2 criteria? No. Patient's initial sepsis screen is negative. Does the patient have a suspected source of infection? No. Patient's initial sepsis screen is negative. Risk Assessment: Do you want to hurt yourself or someone else? Patient reports no desire to harm self or others. Onset of symptoms was April 03, 2023. 09:45 Method Of Arrival: Wheelchair iw 09:45 Acuity: BRADLEY 3 iw Historical: - Allergies: 09:46 No Known Allergies; iw - PMHx: 09:46 Diabetes mellitus; Hypertensive disorder; prostate cancer-bone cancer; iw - Immunization history:: Adult Immunizations up to date. - Family history:: not pertinent. - Social history:: Smoking status: Patient denies any tobacco usage or history of. Screenin:20 [facility] ED Fall Risk Assessment (Adult) History of falling in the last 3 months, db including since admission No falls in past 3 months (0 pts) Confusion or Disorientation No (0 pts) Intoxicated or Sedated No (0 pts) Impaired Gait No (0 pts) Mobility Assist Device Used No (0 pt) Altered Elimination No (0 pt) Score/Fall Risk Level 0 - 2 = Low Risk Oriented to surroundings, Maintained a safe environment. Abuse screen: Denies threats or abuse. Denies injuries from another. Nutritional screening: No deficits noted. Tuberculosis screening: No symptoms or risk factors identified. Assessment: 09:44 Reassessment: Patient appears in no apparent distress at this time. Patient and/or db family updated on plan of care and expected duration. Pain level reassessed. Patient is alert, oriented x 3, equal unlabored respirations, skin warm/dry/pink. 09:45 Reassessment: DR. COELHO AT PATIENT BEDSIDE. db 10:00 Reassessment: Patient appears in no apparent distress at this time. Patient and/or db family updated on plan of care and expected duration. Pain level reassessed. Patient is alert, oriented x 3, equal unlabored respirations, skin warm/dry/pink. LEFT FOOT PAIN AND SWELLING WORSE TODAY. General: Appears in no apparent distress. comfortable, Behavior is calm, cooperative. Pain: Complains of pain in left foot and left leg. Neuro: Level of Consciousness is awake, alert, obeys commands, Oriented to person, place, time, situation. Respiratory: Airway is patent Respiratory effort is even, unlabored, Respiratory pattern is regular, symmetrical. Musculoskeletal: Circulation, motion, and sensation intact. Capillary refill < 3 seconds, Range of motion: intact in all extremities, Swelling present in left foot. 10:09 Reassessment: Patient appears in no apparent distress at this time. PT TO ULTRASOUND db VIA WHEELCHAIR. 11:34 Reassessment: Patient appears in no apparent distress at this time. Patient and/or db family updated on plan of care and expected duration. Pain level reassessed. Patient is alert, oriented x 3, equal unlabored respirations, skin warm/dry/pink. FAMILY IS AT BEDSIDE. 12:45 Reassessment: Patient appears in no apparent distress at this time. Patient and/or db family updated on plan of care and expected duration. Pain level reassessed. Patient is alert, oriented x 3, equal unlabored respirations, skin warm/dry/pink. Patient states feeling better. Patient states symptoms have improved. Vital Signs: 09:43 BP 160 / 82 LA Sitting (auto/reg); Pulse 66 MON; Resp 16 S; Temp 98.3; Pulse Ox 99% on ds4 R/A; 10:37 BP 154 / 83; Pulse 65; Resp 18; Pulse Ox 100% on R/A; db 11:00 BP 164 / 79; Pulse 65; Resp 18; Pulse Ox 100% on R/A; db 12:00 BP 158 / 78; Pulse 65; Resp 18; Pulse Ox 100% ; db ED Course: 09:27 Patient arrived in ED. im 09:28 Jamshid Coelho MD is Attending Physician. elizabeth 09:44 Zhanna Isbell, RN is Primary Nurse. db 09:46 Triage completed. iw 10:05 Inserted saline lock: 20 gauge in right antecubital area, using aseptic technique. db Blood collected. 10:05 First set of blood cultures drawn by me. db 10:05 Warm blanket given. db 10:20 Second set of blood cultures drawn. db 10:21 Patient has correct armband on for positive identification. Bed in low position. Call db light in reach. Side rails up X 1. Pulse ox on. NIBP on. 10:35 US Extremity Venous Unilateral Ltd In Process Unspecified. EDMS 11:00 Arm band placed on Patient placed in an exam room. db 11:36 Foot Left 3 View XRAY In Process Unspecified. EDMS 11:36 Ankle Left 3 View XRAY In Process Unspecified. EDMS 12:11 Héctor Burger MD is Referral Physician. elizabeth 12:11 Manny Loya DPM is Referral Physician. elizabeth 12:50 No provider procedures requiring assistance completed. IV discontinued, intact, db bleeding controlled, No redness/swelling at site. ORTHO BOOT APPLIED TO LEFT FOOT, NEURO INTACT. 12:50 Provided Education on: DISCHARGE. db Administered Medications: 10:08 Drug: NS 0.9% IV 500 ml IV at bolus once Route: IV; Rate: bolus; Site: right db antecubital; 12:45 Follow up: Response: No adverse reaction; IV Status: Completed infusion; IV Intake: db 500ml 10:08 Drug: Ketorolac IVP 15 mg IVP once Route: IVP; Site: right antecubital; db 11:49 Follow up: Response: No adverse reaction db 10:08 Drug: Ondansetron IVP 4 mg IVP once; over 2 minutes Route: IVP; Site: right antecubital;db 11:49 Follow up: Response: No adverse reaction db 10:08 Drug: Diazepam PO 5 mg PO once Route: PO; db 11:49 Follow up: Response: No adverse reaction db 10:44 Drug: morphine IVP or IV 4 mg IVP once over 4 mins Route: IVP; Infused Over: 4 mins; db Site: right antecubital; 11:49 Follow up: Response: No adverse reaction db 10:44 Drug: NS 0.9% IV 1000 ml IV at 125 ml/hr continuous Route: IV; Rate: 125 ml/hr; Site: db right antecubital; 13:03 Follow up: Response: No adverse reaction; IV Status: Completed infusion db 11:49 Drug: Potassium PO Effervescent Tablet 25 mEq PO once; dissolve in 4 ounces of water or db juice Route: PO; 12:45 Follow up: Response: No adverse reaction db Medication: 12:50 VIS not applicable for this client. db Intake: 12:45 IV: 500ml; Total: 500ml. db Outcome: 12:11 Discharge ordered by . elizabeth 12:50 Discharged to home via wheelchair, with family, 12:50 Condition: stable 12:50 Discharge instructions given to patient, family, Instructed on discharge instructions, follow up and referral plans. Prescriptions given X 2, 13:02 Patient left the ED. Signatures: Dispatcher [employer] EDMS Jamshid Coelho MD MD cha Williams, Irene, RN RN Jared Daniel ds4 Kimberly Haley RN RN Zhanna Isbell RN RN db Mendoza, Itzel im Corrections: (The following items were deleted from the chart) 10:20 10:19 Reassessment: Patient appears in no apparent distress at this time. Patient db and/or family updated on plan of care and expected duration. Pain level reassessed. Patient is alert, oriented x 3, equal unlabored respirations, skin warm/dry/pink. LEFT FOOT PAIN AND SWELLING WORSE TODAY. db 10:20 10:19 General: Appears in no apparent distress. comfortable, Behavior is calm, db cooperative, db 10:20 10:19 Pain: Complains of pain in left foot and left leg [facility] 10:20 10:19 Neuro: Level of Consciousness is awake, alert, obeys commands, Oriented to db person, place, time, situation, db 10:20 10:19 Respiratory: Airway is patent Respiratory effort is even, unlabored, Respiratory db pattern is regular, symmetrical, db 10:20 10:19 Musculoskeletal: Circulation, motion, and sensation intact. Capillary refill < 3 db seconds, Range of motion: intact in all extremities, Swelling present in left foot db
--- NOTE | 2023-04-03 12:15 | RAD REPORT ---
EXAM DESCRIPTION: RAD - Foot Left 3 View - 04/03/2023 11:34 am CLINICAL HISTORY: Left Foot pain FINDINGS: Lucency is present within a large osteophyte extending from the navicular. The lucency has developed since 2018 and is compatible with a fracture. Age is indeterminate. No dislocation Pes planus and hallux valgus deformities. Large calcaneal spur
[2023-04-03 13:45] VITALS: TEMP 98.3
[2023-04-03 13:48] VITALS: O2SAT 100
[2023-04-03 13:51] VITALS: BP 158/78
== END 2023-04-03 13:02 | disposition home or self-care (01) ==
LOC: ER 09:24
DX: M19.072 Primary osteoarthritis, left ankle and foot (principal); E11.65 Type 2 diabetes mellitus with hyperglycemia; E87.6 Hypokalemia; I10 Essential (primary) hypertension
CPT/HCPCS: 96361; 87040 ×2; 85025; 36415; 84550; 83605; 80053; 73630; 73610; 93971; 96375; 96374; 99284; J2405; J7040; J7030

== ENCOUNTER → 2023-05-24 | Emergency (ER) | payer OTHER ==
[~2023-05-24] MED LIST: KETOROLAC 30 MG/ML INJ ONE; dexAMETHasone 10 MG/ML VIAL ONE
--- NOTE | 2023-05-24 11:35 | RAD REPORT ---
EXAM DESCRIPTION: CT - C Spine Wo Con - 05/24/2023 11:18 am CLINICAL HISTORY: Pain, radiculopathy COMPARISON: None. TECHNIQUE: Axial thin cut noncontrast CT images of the cervical spine were obtained with sagittal an d coronal reconstruction images generated and reviewed. All CT scans are performed using dose optimization technique as appropriate and may include automated exposure control or mA/KV adjustment according to patient size. FINDINGS: Cervical body height are preserved. No subluxation. Straightening of normal cervical lordo sis which may be positional or secondary to muscle spasm. Anterior plating with interbody fused space rs at C6-T1. Multilevel mild degenerative changes with mild disc height loss, and facet and uncoverte bral joint arthropathy most notably contributing to up to severe neural foraminal narrowing on the le ft at C3-4 and [id number] narrowing elsewhere. No fracture or acute bony abnormality. No paraspinal mass or hematoma. IMPRESSION: No acute cervical spine fracture or subluxation. Sequelae of C6-T1 anterior fusion and degenerative changes as detailed above.
--- NOTE | 2023-05-24 13:05 | ER ---
Nurse's Notes [facility] Name: Tim Easton Age: 73 yrs Sex: Male : 1950 Arrival Date: 05/24/2023 Time: 10:38 Bed 5 Private MD: Diagnosis: Cervical disc disorder with radiculopathy, high cervical region Presentation: 05/24 10:49 Chief complaint: Patient states: pain in right side of neck that started on Monday ko1 and Monday extends down into the right shoulder. Typically lifts 5 pound weights doing lateral lifts and thinks that may have something to do with it. Took some tylenol with codeine which helped a little and he took gabapentin which did not help at all. Coronavirus screen: At this time, the client does not indicate any symptoms associated with coronavirus-19. Ebola Screen: No symptoms or risks identified at this time. Initial Sepsis Screen: Does the patient meet any 2 criteria? No. Patient's initial sepsis screen is negative. Does the patient have a suspected source of infection? No. Patient's initial sepsis screen is negative. Risk Assessment: Do you want to hurt yourself or someone else? Patient reports no desire to harm self or others. Onset of symptoms is unknown. 10:49 Method Of Arrival: Ambulatory ko1 10:49 Acuity: BRADLEY 3 ko1 Triage Assessment: 10:49 General: Appears in no apparent distress. uncomfortable, Behavior is calm, cooperative, ko1 appropriate for age. Pain: Complains of pain in posterior cervical area and right trapezius. Historical: - Allergies: 13:28 No Known Allergies; cm10 - PMHx: 10:40 diabetes mellitus; Hypertensive disorder; prostate cancer-bone cancer; ll1 - Immunization history:: Adult Immunizations up to date. - Social history:: Smoking status: Patient denies any tobacco usage or history of. - Family history:: not pertinent. - Hospitalizations: : No recent hospitalization is reported. Screenin:13 [facility] ED Fall Risk Assessment (Adult) History of falling in the last 3 months, ko1 including since admission No falls in past 3 months (0 pts) Confusion or Disorientation No (0 pts) Intoxicated or Sedated No (0 pts) Impaired Gait No (0 pts) Mobility Assist Device Used No (0 pt) Altered Elimination No (0 pt) Score/Fall Risk Level 0 - 2 = Low Risk Oriented to surroundings, Maintained a safe environment, Educated pt \T\ family on fall prevention, incl call for assistance when getting out of bed, Assessed \T\ reinforced patient's understanding of fall precautions, Provided non-skid footwear, Hourly rounding (assess needs \T\ fall precautionary measures) done, Used ambulatory aids as needed (educated on \T\ assisted with), Used gait belt as appropriate. Abuse screen: Denies threats or abuse. Denies injuries from another. Nutritional screening: No deficits noted. Tuberculosis screening: No symptoms or risk factors identified. Assessment: 11:13 Neuro: No deficits noted. Cardiovascular: No deficits noted. Respiratory: No deficits ko1 noted. GI: No deficits noted. : No deficits noted. EENT: No deficits noted. Derm: No deficits noted. Musculoskeletal: Reports pain in back and right trapezius and posterior cervical area since monday. Pain is 10 out of 10 on a pain scale. Vital Signs: 10:49 BP 139 / 82; Pulse 73; Resp 15; Temp 97; Pulse Ox 99% ; Weight 92.99 kg; Height 5 ft. ko1 11 in. ; Pain 10/10; 12:23 BP 138 / 74; Pulse 63; Resp 18; Pulse Ox 100% on R/A; ld1 13:15 BP 132 / 71; Pulse 63; Resp 18; Pulse Ox 100% on R/A; cm10 10:49 Body Mass Index 28.59 (92.99 kg, 180.34 cm) ko1 10:49 Pain Scale: Adult ko1 ED Course: 10:40 Patient arrived in ED. ll1 10:40 Arm band placed on Patient placed in an exam room, on a stretcher. ll1 10:41 Charles Ya MD is Attending Physician. rn 10:42 Dorina Reed, CHUCHO is Primary Nurse. ko1 10:53 Triage completed. ko1 11:13 Patient has correct armband on for positive identification. Bed in low position. Call ko1 light in reach. Side rails up X 1. Provided Education on: ns. Pulse ox on. NIBP on. Door closed. Noise minimized. Lights dimmed. 11:18 CT C Spine In Process Unspecified. EDMS 12:34 EKG done, by ED staff. aw1 13:29 No provider procedures requiring assistance completed. Patient did not have IV access cm10 during this emergency room visit. Administered Medications: 13:28 Drug: Dexamethasone IM 10 mg IM once Route: IM; Site: left vastus lateralis; cm10 13:29 Follow up: Response: No adverse reaction cm10 13:28 Drug: Ketorolac IVP 15 mg IVP once {Note: Right leg- IM.} Route: IVP; Site: Other; cm10 13:29 Follow up: Response: No adverse reaction cm10 Medication: 13:28 VIS not applicable for this client. cm10 Outcome: 13:05 Discharge ordered by . rn 13:29 Discharged to home ambulatory, with significant other, cm10 13:29 Condition: good 13:29 Discharge instructions given to patient, Instructed on discharge instructions, follow up and referral plans. medication usage, Demonstrated understanding of instructions, follow-up care, medications, Prescriptions given X 2, 13:33 Patient left the ED. cm10 Signatures: Dispatcher [employer] EDMS Charles Ya MD MD rn Lewis, Lynsay RN RN ll1 Jane Galvez RN RN ld1 Dorina Reed RN RN dony1 Phuong Marvin RN RN cm10 Teagan Hernandez awEduardo
--- NOTE | 2023-05-24 13:05 | EDPHYS ---
Physician Documentation [facility] Name: Tim Easton Age: 73 yrs Sex: Male : 1950 Arrival Date: 05/24/2023 Time: 10:38 Bed 5 Private MD: ED Physician Charles Ya HPI: 05/24 11:16 This 73 yrs old Black Male presents to ER via Ambulatory with complaints of Neck Pain, rn >24Hrs Old, Shoulder Pain. 11:16 The patient or guardian complains of pain, that is acute. The symptoms are located on rn the right trapezius and posterior cervical area. 11:17 Onset: The symptoms/episode began/occurred 1 week(s) ago. The pain radiates to the rn Right shoulder. Modifying factors: The symptoms are alleviated by remaining still, And elevating right arm the symptoms are aggravated by movement. Severity of symptoms: At their worst the symptoms were moderate, in the emergency department the symptoms have improved. The patient has experienced a previous episode. The patient has been recently seen by a physician:. Patient reports approximately 1 week of neck pain radiating down the right side of the neck and right arm. No chest pain or shortness of breath. No injury. Has had pinched nerves in the cervical region before requiring surgery. Seen by PCP this week and prescribed gabapentin for suspected nerve problem. Took prior to arrival and states helping a little bit. Also helps when elevates and positions right arm in a specific way. No weakness or numbness. No lower body problems.. Historical: - Allergies: 13:28 No Known Allergies; cm10 - PMHx: 10:40 diabetes mellitus; Hypertensive disorder; prostate cancer-bone cancer; ll1 - Immunization history:: Adult Immunizations up to date. - Social history:: Smoking status: Patient denies any tobacco usage or history of. - Family history:: not pertinent. - Hospitalizations: : No recent hospitalization is reported. ROS: 11:17 Constitutional: Negative for fever, chills, and weight loss, Neck: Positive for neck rn pain Cardiovascular: Negative for chest pain, palpitations, and edema, Respiratory: Negative for shortness of breath, cough, wheezing, and pleuritic chest pain, Abdomen/GI: Negative for abdominal pain, nausea, vomiting, diarrhea, and constipation, Back: Negative for injury and pain, MS/Extremity: Negative for injury and deformity, Skin: Negative for injury, rash, and discoloration, Neuro: Negative for headache, weakness, numbness, tingling, and seizure, Exam: 11:17 Constitutional: This is a well developed, well nourished patient who is awake, alert, rn and in no acute distress. Head/Face: Normocephalic, atraumatic. Neck: Trachea midline, no masses palpated, and no cervical lymphadenopathy. Supple, full range of motion without nuchal rigidity, or vertebral point tenderness. No Meningismus. Cardiovascular: Regular rate and rhythm. No pulse deficits. Respiratory: No increased work of breathing, no retractions or nasal flaring. Skin: Warm, dry no discoloration MS/ Extremity: Pulses equal, no cyanosis. Neurovascular intact. Full, normal range of motion. Equal circumference. Neuro: Awake and alert, GCS 15, oriented to person, place, time, and situation. Cranial nerves II-XII grossly intact. Motor strength 5/5 in all extremities. Sensory grossly intact. Cerebellar exam normal. Normal gait. 13:02 ECG was reviewed by the Attending Physician. rn Vital Signs: 10:49 BP 139 / 82; Pulse 73; Resp 15; Temp 97; Pulse Ox 99% ; Weight 92.99 kg; Height 5 ft. ko1 11 in. ; Pain 10/10; 12:23 BP 138 / 74; Pulse 63; Resp 18; Pulse Ox 100% on R/A; ld1 13:15 BP 132 / 71; Pulse 63; Resp 18; Pulse Ox 100% on R/A; cm10 10:49 Body Mass Index 28.59 (92.99 kg, 180.34 cm) ko1 10:49 Pain Scale: Adult ko1 MDM: 10:41 Patient medically screened. rn 13:01 Differential diagnosis: arthritis, Cervical Disc Herniation Cervical Discogenic Pain rn Cervical Facet Syndrome Cervical Raiculopathy cervical strain, Osteoarthritis. Data reviewed: vital signs, nurses notes, EKG, radiologic studies, and as a result, I will discharge patient. 13:04 Counseling: I had a detailed discussion with the patient and/or guardian regarding the rn historical points, exam findings, and any diagnostic results supporting the discharge/admit diagnosis, lab results, radiology results, the need for outpatient follow up, to return to the emergency department if symptoms worsen or persist or if there are any questions or concerns that arise at home. Special discussion: I discussed with the patient/guardian in detail that at this point there is no indication for admission to the hospital. It is understood, however, that if the symptoms persist or worsen the patient needs to return immediately for re-evaluation. 05/24 11:10 Order name: CT C Spine; Complete Time: 11:42 rn 05/24 11:58 Order name: EKG; Complete Time: 11:58 rn 05/24 11:58 Order name: EKG - Nurse/Tech; Complete Time: 12:34 rn EC:02 Rate is 64 beats/min. Rhythm is regular. QRS [place] is Normal. [place] interval is normal. QRS rn interval is normal. QT interval is normal. No Q waves. T waves are Normal. No ST changes noted. Clinical impression: Normal ECG and NSR w/ Non-specific ST/T Changes. Interpreted by me. Reviewed by me. Administered Medications: 13:28 Drug: Dexamethasone IM 10 mg IM once Route: IM; Site: left vastus lateralis; cm10 13:29 Follow up: Response: No adverse reaction cm10 13:28 Drug: Ketorolac IVP 15 mg IVP once {Note: Right leg- IM.} Route: IVP; Site: Other; cm10 13:29 Follow up: Response: No adverse reaction cm10 Disposition Summary: 05/24/23 13:05 Discharge Ordered Notes: Location: Home rn Problem: new rn Symptoms: have improved rn Condition: Stable rn Diagnosis - Cervical disc disorder with radiculopathy, high cervical region rn Followup: rn - With: Private Physician - When: As needed - Reason: Recheck today's complaints, Re-evaluation by your physician Discharge Instructions: - Discharge Summary Sheet rn - Cervical Radiculopathy rn Forms: - Medication Reconciliation Form rn - Thank You Letter rn - Antibiotic journalism intern - Prescription Opioid Use rn - Patient Portal Instructions rn - Leadership Thank You Letter rn Prescriptions: - Medrol (Edilson) 4 mg Oral Tablets, Dose Pack - take 1 tablet ORAL route as directed - follow package instructions; 1 packet; rn Refills: 0, Product Selection Permitted - Cyclobenzaprine 5 mg Oral tablet - take 1 tablet ORAL route 2 times per day As needed; 12 tablet; Refills: 0, rn Product Selection Permitted Signatures: Dispatcher [employer] Charles Winston MD MD rn Jack Valenzuela, RN RN ll1 Dorina Reed, RN RN ko1 Phuong Marvin, RN RN cm10
[2023-05-24 13:59] VITALS: BP 132/71; TEMP 97; O2SAT 100
--- NOTE | 2023-05-26 13:29 | EKG ---
Test Date: 2023-05-24 Test Time: 12:31:24 [employer] Supervisor: YIN MEASUREMENT RESULTS: Intervals: Rate: 64 CT: 152 QRSD: 96 QT: 390 QTc: 402 [place]: P: 73 CT: 152 QRS: -16 T: -5 INTERPRETIVE STATEMENTS: Normal sinus rhythm Normal ECG Compared to ECG 10/12/2016 13:26:38 Sinus bradycardia no longer present Electronically Signed On 05-26-23 13:24:38 [employer] CONSULTANT by Shakir Wynn
== END ==
LOC: ER 10:38
DX: M50.11 Cervical disc disorder with radiculopathy, high cervical region (principal); Z85.830 Personal history of malignant neoplasm of bone
CPT/HCPCS: 93005; 72125; 96372; 96374; 99284; J1100

== ENCOUNTER → 2023-05-29 | Emergency (ER) | payer OTHER ==
[~2023-05-29] MED LIST changes: +MORPHINE 4 MG/ML SYR ONE; +ONDANSETRON 4 MG (ODT) TAB ONE; -dexAMETHasone 10 MG/ML VIAL ONE
--- NOTE | 2023-05-29 11:33 | EDPHYS ---
Physician Documentation [facility] Name: Tim Easton Age: 73 yrs Sex: Male : 1950 Arrival Date: 05/29/2023 Time: 11:11 Bed 13 Private MD: ED Jamshid Allen HPI: 05/29 11:33 This 73 yrs old Black Male presents to ER via Ambulatory with complaints of Neck Pain, sb4 >24Hrs Old. 11:36 patient states he was seen here 5 days ago for shoulder pain and diagnosed with a sb4 pinched nerve. he states that he has been taking gabapentin, medrol dose pack, and flexeril without any relief in his symptoms. he has not follow up with ortho. Historical: - Allergies: 11:21 No Known Allergies; aa5 - PMHx: 11:21 diabetes mellitus; Hypertensive disorder; prostate cancer-bone cancer; mb9 - Immunization history:: Adult Immunizations unknown. - Social history:: Smoking status: Patient denies any tobacco usage or history of. ROS: 11:36 Constitutional: Negative for fever, chills, and weight loss, sb4 11:36 Neck: Positive for pain with movement, pain at rest, of the posterior cervical area, left trapezius and right trapezius, 11:36 All other systems are negative, Exam: 11:36 Constitutional: This is a well developed, well nourished patient who is awake, alert, sb4 and in no acute distress. Head/Face: Normocephalic, atraumatic. Eyes: Extra-ocular motions intact. Periorbital areas with no swelling, redness, or edema. ENT: Mucous membranes moist. Cardiovascular: Regular rate and rhythm with a normal S1 and S2. Respiratory: Lungs have equal breath sounds bilaterally, clear to auscultation and percussion. No rales, rhonchi or wheezes noted. No increased work of breathing, no retractions or nasal flaring. Abdomen/GI: Soft, non-tender, no distension. Skin: Warm, dry with normal turgor. Normal color with no rashes, no lesions, and no evidence of cellulitis. MS/ Extremity: Pulses equal, no cyanosis. Neurovascular intact. Full, normal range of motion. Neuro: Awake and alert, GCS 15, oriented to person, place, time, and situation. Motor strength 5/5 in all extremities. Sensory grossly intact. 11:36 Neck: External neck: is normal, C-spine: appears grossly normal, no acute changes, ROM/movement: pain, that is moderate, with any movement, Vital Signs: 11:25 BP 144 / 75; Pulse 75; Resp 16 S; Temp 98.3(O); Pulse Ox 99% on R/A; Weight 90.72 kg aa5 (R); Height 5 ft. 11 in. ; 11:44 BP 130 / 84; Pulse 78; Resp 16; Pulse Ox 100% on R/A; mb9 11:25 Body Mass Index 27.89 (90.72 kg, 180.34 cm) aa5 MDM: 11:19 Patient medically screened. sb4 11:36 Differential diagnosis: Cervical Disc Herniation Cervical Discogenic Pain Cervical sb4 Facet Syndrome Cervical Raiculopathy Cervical Spondylosis cervical strain, Degenerative Disc Disease. Data reviewed: vital signs, nurses notes, and as a result, I will discharge patient. Counseling: I had a detailed discussion with the patient and/or guardian regarding the historical points, exam findings, and any diagnostic results supporting the discharge/admit diagnosis, the need for outpatient follow up, a orthopedic surgeon, to return to the emergency department if symptoms worsen or persist or if there are any questions or concerns that arise at home. Administered Medications: 11:32 Drug: Ketorolac IM 30 mg IM once Route: IM; Site: right gluteus; mb9 11:42 Follow up: Response: No adverse reaction mb9 11:33 Drug: Ondansetron PO 4 mg PO once Route: PO; mb9 11:42 Follow up: Response: No adverse reaction mb9 11:42 Drug: morphine IVP or IV 4 mg IVP once over 4 mins {Note: IM per VO. Given in left mb9 Gluteus .} Route: IVP; Infused Over: 4 mins; Site: Other; 11:42 Follow up: Response: No adverse reaction mb9 Disposition Summary: 05/29/23 11:32 Discharge Ordered Notes: Location: Home sb4 Problem: an ongoing problem sb4 Symptoms: have improved sb4 Condition: Stable sb4 Diagnosis - Cervical disc disorder with radiculopathy sb4 Followup: sb4 - With: Del Mello MD - When: 2 - 3 days - Reason: Further diagnostic work-up, Recheck today's complaints, Re-evaluation by your physician Followup: sb4 - With: Saad Trent MD - When: 2 - 3 days - Reason: Further diagnostic work-up, Recheck today's complaints, Re-evaluation by your physician Followup: sb4 - With: Wilfredo Cordova MD - When: 2 - 3 days - Reason: Further diagnostic work-up, Recheck today's complaints, Re-evaluation by your physician Discharge Instructions: - Discharge Summary Sheet sb4 - Pinched Nerve sb4 - Shoulder Pain, [id number] sb4 - Joint Steroid Injection sb4 Forms: - Medication Reconciliation Form sb4 - Thank You Letter sb4 - Antibiotic Education sb4 - Prescription Opioid Use sb4 - Patient Portal Instructions sb4 - Leadership Thank You Letter sb4 Prescriptions: - acetaminophen-codeine 300-30 mg Oral tablet - take 1 tablet ORAL route 3 times per day as needed for pain; 15 tablet; sb4 Refills: 0, Product Selection Permitted Signatures: Ophelia Doss, RN RN aa5 Melissa Winters PA-C PA-C sb4 Ada Emery RN RN mb9
--- NOTE | 2023-05-29 11:33 | ER ---
Nurse's Notes [facility] Name: Tim Easton Age: 73 yrs Sex: Male : 1950 Arrival Date: 05/29/2023 Time: 11:11 Bed 13 Private MD: Diagnosis: Cervical disc disorder with radiculopathy Presentation: 05/29 11:25 Chief complaint: Patient states: neck pain, pt states "I was here just a few days ago aa5 and they said it was a pinched nerve but the pain got worse over the weekend". Coronavirus screen: At this time, the client does not indicate any symptoms associated with coronavirus-19. Ebola Screen: Patient denies travel to an Ebola-affected area in the 21 days before illness onset. Initial Sepsis Screen: Does the patient meet any 2 criteria? No. Patient's initial sepsis screen is negative. Does the patient have a suspected source of infection? No. Patient's initial sepsis screen is negative. Risk Assessment: Do you want to hurt yourself or someone else? Patient reports no desire to harm self or others. Onset of symptoms was May 2023. 11:25 Acuity: BRADLEY 4 aa5 11:25 Method Of Arrival: Ambulatory aa5 Historical: - Allergies: 11:21 No Known Allergies; aa5 - PMHx: 11:21 diabetes mellitus; Hypertensive disorder; prostate cancer-bone cancer; mb9 - Immunization history:: Adult Immunizations unknown. - Social history:: Smoking status: Patient denies any tobacco usage or history of. Screenin:20 [facility] ED Fall Risk Assessment (Adult) History of falling in the last 3 months, mb9 including since admission No falls in past 3 months (0 pts) Confusion or Disorientation No (0 pts) Intoxicated or Sedated No (0 pts) Impaired Gait No (0 pts) Mobility Assist Device Used No (0 pt) Altered Elimination No (0 pt) Score/Fall Risk Level 0 - 2 = Low Risk Oriented to surroundings, Maintained a safe environment, Educated pt \\T\\ family on fall prevention, incl call for assistance when getting out of bed. Abuse screen: Denies threats or abuse. Nutritional screening: No deficits noted. Tuberculosis screening: No symptoms or risk factors identified. Assessment: 11:43 General: Appears in no apparent distress. Behavior is calm, cooperative. Pain: mb9 Complains of pain in neck Pain radiates to right trapezius and left trapezius Pain currently is 9 out of 10 on a pain scale. Quality of pain is described as throbbing, Pain began 2-3 days ago. Is continuous. Neuro: [place] Agitation-Sedation Scale (RASS): 0 - Alert and Calm Level of Consciousness is awake, alert, obeys commands, Oriented to person, place, time, situation, Appropriate for age. Cardiovascular: Patient's skin is warm and dry. Respiratory: Airway is patent Respiratory effort is even, unlabored, Respiratory pattern is regular, symmetrical. GI: Reports nausea. : No signs and/or symptoms were reported regarding the genitourinary system. EENT: No signs and/or symptoms were reported regarding the EENT system. Derm: No signs and/or symptoms reported regarding the dermatologic system. Musculoskeletal: Range of motion: limited in neck. Vital Signs: 11:25 BP 144 / 75; Pulse 75; Resp 16 S; Temp 98.3(O); Pulse Ox 99% on R/A; Weight 90.72 kg aa5 (R); Height 5 ft. 11 in. ; 11:44 BP 130 / 84; Pulse 78; Resp 16; Pulse Ox 100% on R/A; mb9 11:25 Body Mass Index 27.89 (90.72 kg, 180.34 cm) aa5 ED Course: 11:16 Patient arrived in ED. mg5 11:17 Melissa Winters PA-C is PHCP. sb4 11:17 Jamshid Bowen MD is Attending Physician. sb4 11:19 Ada Emery RN is Primary Nurse. mb9 11:20 Arm band placed on. mb9 11:20 Placed in gown. Bed in low position. Call light in reach. Side rails up X 1. Client mb9 placed on continuous cardiac and pulse oximetry monitoring. NIBP monitoring applied. 11:25 No provider procedures requiring assistance completed. mb9 11:26 Triage completed. aa5 11:31 Del Mello MD is Referral Physician. sb4 11:32 Saad Trent MD is Referral Physician. sb4 11:32 Wilfredo Cordova MD is Referral Physician. sb4 11:44 Patient did not have IV access during this emergency room visit. mb9 Administered Medications: 11:32 Drug: Ketorolac IM 30 mg IM once Route: IM; Site: right gluteus; mb9 11:42 Follow up: Response: No adverse reaction mb9 11:33 Drug: Ondansetron PO 4 mg PO once Route: PO; mb9 11:42 Follow up: Response: No adverse reaction mb9 11:42 Drug: morphine IVP or IV 4 mg IVP once over 4 mins {Note: IM per VO. Given in left mb9 Gluteus .} Route: IVP; Infused Over: 4 mins; Site: Other; 11:42 Follow up: Response: No adverse reaction mb9 Medication: 11:44 VIS not applicable for this client. mb9 Outcome: 11:32 Discharge ordered by . [email or web address] 11:44 Discharged to home ambulatory, with family, mb9 11:44 Condition: stable :44 Discharge instructions given to patient, Instructed on discharge instructions, follow up and referral plans. Demonstrated understanding of instructions, follow-up care, medications, Prescriptions given X 1, :44 Patient left the ED. mb9 Signatures: Ophelia Doss, RN RN aa5 Melissa Winters, PA-C PA-C [email or web address] Ada Emery RN RN mb9 Trice Flores mg5
[2023-05-29 12:12] VITALS: BP 130/84; TEMP 98.3; O2SAT 100
== END ==
LOC: ER 11:11
DX: M50.10 Cervical disc disorder with radiculopathy, unspecified cervical region (principal)
CPT/HCPCS: 96372; 96374; 99284; Q0162